=== PATIENT | female | born 1975 | race Caucasian/White ===

== ENCOUNTER 2024-05-16 17:29 | Emergency (ER) | payer SELFPAY ==
[2024-05-16] VITALS (9 sets, daily range): BP systolic 94–123; BP diastolic 63–94; PULSE 66–89; RESP 12–21; TEMP 36.5; O2SAT 94–100; BMI 26.9
--- NOTE | 2024-05-16 17:35 | ECG_ITS ---
[facility]24[facility]16 Pat Name: Micheline William Department: Room: Gender: Female [employer] Specialists: : 1975 Requested By: Zeke Andrade Order Number: [id number] Reading MD: ANKIT ADLER Measurements Intervals [place] Rate: 77 P: 48 CA: 145 QRS: 101 QRSD: 84 T: 51 QT: 387 QTc: 440 Interpretive Statements SINUS RHYTHM WITH SINUS ARRHYTHMIA RIGHT AXIS DEVIATION [QRS AXIS > 100] NONSPECIFIC T-WAVE ABNORMALITY No previous ECG available for comparison Electronically Signed On 05-17-2024 19:14:01 TECHNICAL FELLOW by ANKIT ADLER [email or web address]
--- NOTE | 2024-05-16 17:46 | CTR_ITS ---
PROCEDURE INFORMATION: Exam: CT Head Without Contrast Exam date and time: 05/16/2024 6:07 PM Age: 48 years old Clinical indication: C/O dizziness with nausea TECHNIQUE: Imaging protocol: Computed tomography of the head without contrast. Radiation optimization: All CT scans at this facility use at least one of these dose optimization techniques: automated exposure control; mA and/or kV adjustment per patient size (includes targeted exams where dose is matched to clinical indication); or iterative reconstruction. COMPARISON: No relevant prior studies available. RADIATION DOSE METRICS: Total DLP (mGy-cm): 1004.33 FINDINGS: Brain: No hemorrhage. No mass effect or midline shift. No significant white matter disease. Cerebral ventricles: No ventriculomegaly. Paranasal sinuses: Visualized sinuses are unremarkable. No fluid levels. Mastoid air cells: Visualized mastoid air cells are well aerated. Bones: Unremarkable. No acute fracture. Soft tissues: Unremarkable. CT/CT head wo con* [id number] IMPRESSION: No acute intracranial findings.
--- NOTE | 2024-05-16 17:52 | W.ED.ARRPALP ---
Documented by User: Zeke Ruffin DO 05/17/24 06:26 HPI - Arrhythmia/Palpitations General: Chief Complaint: Arrhythmia/Palpitations Stated Complaint: SOB,dizzy Time Seen by Provider: 05/16/24 17:45 History of Present Illness: 48-year-old female presents emergency room clinic shortness of breath dizziness she is getting some cramping in her hands. Seems does have trouble most of the day but she says in the last hour she has had more numbness and tingling bilaterally in her hands and feet that her hands are cramping she feels like she is a hard time opening up. She has not eaten nauseated generally rather anxious. Related Data Previous Rx's ?Medication ?Instructions ?Recorded prednisone 5 mg tablets in a dose See Rx Instructions PO .COMPLEX 05/16/24 pack #21 ea Allergies Allergy/AdvReac Type Severity Reaction Status Date / Time No Known Allergies Allergy Verified 05/16/24 17:40 Review of Systems Const: Denies: fever(s) or chills Card: Denies: chest pain Resp: Reports: dyspnea GI: Denies: abdominal pain : Denies: dysuria, urinary frequency or urinary urgency Musc: Reports: extremity pain (Carpopedal spasm cramping); Denies: neck pain or back pain Skin/Breast: Denies: rash Physical Exam Const: GENERAL APPEARANCE: cooperative ORIENTATION/CONSCIOUSNESS: Yes awake, Yes oriented to person, Yes oriented to place and Yes oriented to time HENMT: COMMON NORMALS: normocephalic, atraumatic and hearing grossly normal bilaterally HEAD & SCALP: normocephalic and atraumatic Resp: COMMON NORMALS: No retractions and clear to auscultation bilaterally EFFORT & INSPECTION: Yes tachypneic AUSCULTATION: clear to auscultation bilaterally Cardio: COMMON NORMALS: regular rate, regular rhythm and No murmurs present (Cardio) RATE: regular rate RHYTHM: regular rhythm GI: COMMON NORMALS: Soft to palpation and No hepatosplenomegaly present AUSCULTATION: Yes normoactive bowel sounds PALPATION: Yes Soft to palpation, No Tenderness to palpation present (GI), No Guarding due to palpation present (GI) and Yes No hepatosplenomegaly present Extremity: COMMON NORMALS: normal to inspection, capillary refill normal, no clubbing, cyanosis or edema, no calf tenderness and no pedal edema Neuro: SENSORIUM/ORIENTATION: Yes oriented to person, Yes oriented to place and Yes oriented to time Skin: COMMON NORMALS: no rashes or lesions noted GENERAL SKIN EXAM: no rashes or lesions noted Course Vital Signs: Vital signs: Vital Signs Temperature 97.7 F 05/16/24 17:30 Pulse Rate 72 05/16/24 20:45 Respiratory Rate 18 05/16/24 20:45 Blood Pressure 109/76 05/16/24 20:45 Pulse Oximetry 96 05/16/24 20:45 Oxygen Delivery Me thod Room Air 05/16/24 19:05 MDM - Arrhythmia/Palpitations Medical Decision Making Care signed out to Dr. Kumar at change of shift. See final notes for diagnosis and disposition. EKG revealed sinus rhythm with no ST segment abnormalities. Head CT was normal. Arterial blood gases revealed a pH of 7.61 with a pCO2 of 17 and a pO2 of 120 on room air. CBC and CMP were normal. Troponin less than 6. Urinalysis normal. Patient declined a 2-hour troponin. She is feeling back to normal now. Appears that she had a panic attack possibly secondary to her asthma. I did place her on a prednisone burst and taper. Recommended she follow-up with her primary care physician next week for recheck. She was discharged in stable condition. Lab Data 05/16/24 18:30 05/16/24 18:[address] 05/16/24 17:46 IMPRESSION: No acute intracranial findings. Laboratory Results WBC 7.89 10^3/uL (3.29-11.43) 05/16/24 18:30 RBC 4.19 10^6/uL (3.85-5.65) 05/16/24 18:30 Hgb 12.90 g/dL (11.27-16.99) 05/16/24 18:30 Hct 38.7 % (36-47) 05/16/24 18:30 MCV 92.4 fl (85-98) 05/16/24 18:30 MCH 30.8 pg (27-33) 05/16/24 18:30 MCHC 33.3 g/dL (30-55) 05/16/24 18:30 RDW 12.1 % (12.1-15.1) 05/16/24 18:30 Plt Count 326 10^3/cmm (157-399) 05/16/24 18:30 MPV 9.9 fL (7.4-10.4) 05/16/24 18:30 Neut % (Auto) 59.5 % 05/16/24 18:30 Lymph % (Auto) 31.6 % 05/16/24 18:30 [place] % (Auto) 7.6 % 05/16/24 18:30 Eos % (Auto) 0.4 % 05/16/24 18:30 Baso % (Auto) 0.6 % 05/16/24 18:30 Neut # (Auto) 4.70 10^3/uL (1.8-7.7) 05/16/24 18:30 Lymph # (Auto) 2.5 10^3/uL (0.8-4.8) 05/16/24 18:30 [place] # (Auto) 0.6 10^3/uL (0.2-0.9) 05/16/24 18:30 Eos # (Auto) 0.0 10^3/uL (0.0-0.8) 05/16/24 18:30 Baso # (Auto) 0.1 10^3/uL (0.0-0.1) 05/16/24 18: Nucleated RBC % (auto) 0 % 05/16/24 18: Nucleated RBCs # 0.0 /100WBC 05/16/24 18:30 Specimen Type Arterial 05/16/24 17:51 Sample Site Radial, right 05/16/24 17:51 ABG pH 7.61 (7.35-7.45) H* 05/16/24 17:51 ABG pCO2 17.2 mmHg (35-45) L* 05/16/24 17:51 ABG pO2 120.0 mmHg (80.0-100.0) H 05/16/24 17:51 ABG PO2/FiO2 Ratio 571 05/16/24 17:51 ABG HCO3 17.3 mmol/L (22-26) L 05/16/24 17:51 ABG O2 Saturation > 99.1 05/16/24 17:51 ABG Base Excess -1.4 mmol/L (-2.0-2.0) 05/16/24 17:51 Guicho Test Pos 05/16/24 17:51 A-a O2 Gradient 0.8 mmHg (5-10) L 05/16/24 17:51 Hematocrit 41.9 % (37-47) 05/16/24 17:51 Hgb O2 Saturation 98.1 % (95-100) 05/16/24 17:51 Carboxyhemoglobin 0.8 %THgb (0.4-20.1) 05/16/24 17:51 Methemoglobin 0.9 % (0.4-1.5) 05/16/24 17:51 Total Hemoglobin 13.7 g/dL (12-16) 05/16/24 17:51 Sodium 142.0 mmol/L (131-143) 05/16/24 17:51 Potassium 3.5 mmol/L (3.5-5.0) 05/16/24 17:51 Glucose 107.0 mg/dL (70-115) 05/16/24 17:51 Ionized Calcium 1.2 mmol/L (1.1-1.4) 05/16/24 17:51 O2 Delivery Device Room air 05/16/24 17:51 FiO2 21.0 % 05/16/24 17:51 Help Desk Specialist ID Walci 05/16/24 17:51 Sodium 139 mmol/L (136-145) 05/16/24 18:30 Potassium 3.6 mmol/L (3.5-5.1) 05/16/24 18:30 Chloride 104 mmol/L (98-107) 05/16/24 18:30 Carbon Dioxide 17 mmol/L (22-29) L 05/16/24 18:30 Anion Gap 21.6 (5-19) H 05/16/24 18:30 BUN 10 mg/dL (6-20) 05/16/24 18:30 Creatinine 0.8 mg/dL (0.5-0.9) 05/16/24 18:30 GFR Calculation 76.9 mL/min (90-130) L 05/16/24 18:30 Glucose 100 mg/dL (65-115) 05/16/24 18:30 Calculated Osmolality 287 mOsm/kg (285-295) 05/16/24 18:30 Calcium 9.6 mg/dL (8.5-10.5) 05/16/24 18:30 Total Bilirubin 0.2 mg/dL (0.15-1.2) 05/16/24 18:30 AST 15 U/L (0-32) 05/16/24 18:30 ALT 10 U/L (0-33) 05/16/24 18:30 Alkaline Phosphatase 73 U/L (35-105) 05/16/24 18:30 Troponin T Baseline < 6 ng/L (0-10) 05/16/24 18:30 Total Protein 7.4 g/dL (6.6-8.7) 05/16/24 18:30 Albumin 4.5 g/dL (3.5-5.2) 05/16/24 18:30 Globulin 2.9 g/dL (1.3-4.6) 05/16/24 18:30 Urine Color Yellow (Yellow) 05/16/24 18:51 Urine Appearance Clear (CLEAR) 05/16/24 18:51 Urine pH 6.5 (5-7) 05/16/24 18:51 Ur Specific [place] 1.005 (1.005-1.030) 05/16/24 18:51 Urine Protein Negative (Negative) 05/16/24 18:51 Urine Glucose (UA) Negative (Normal) 05/16/24 18:51 Urine Ketones Negative (Negative) 05/16/24 18:51 Urine Blood 2+ (Negative) A 05/16/24 18:51 Urine Nitrate Negative (Negative) 05/16/24 18:51 Urine Bilirubin Negative (Negative) 05/16/24 18:51 Urine Urobilinogen 0.2 mg/dL (Negative) 05/16/24 18:51 Ur Leukocyte Esterase Negative (Negative) 05/16/24 18:51 Urine RBC 0-2 /hpf (0-2) 05/16/24 18:51 Urine WBC 0-5 /hpf (0-5) 05/16/24 18:51 Ur Squamous Epith Cells 0-5 /hpf (0-5) 05/16/24 18:51 Amorphous Sediment Not Reportable 05/16/24 18:51 Urine Bacteria None seen /hpf (NONE) 05/16/24 18:51 Hyaline Casts 0-4 /lpf H 05/16/24 18:51 Discharge Plan Discharge Patient Disposition: Home Clinical Impression: Anxiety, Palpitations Asthma Qualifiers: Asthma severity: mild Asthma persistence: intermittent Asthma complication type: with acute exacerbation Qualified Code(s): J45.21 - Mild intermittent asthma with (acute) exacerbation Condition: Stable Prescriptions: New prednisone 5 mg tablets,dose pack See Rx Instructions PO .COMPLEX Qty: 21 0RF Rx Instructions: prednisone 5 mg: take 8 tablets (40 mg) on Day 1; 7 tablets (35 mg) on Day 2; then decrease by 1 tablet every day until finished Discharge Orders: Discharge ED (Routine); Ordered 05/16/24 Ordered By: Tr Kumar Patient Instructions: Heart Palpitations Activity Restrictions/Additional Instructions: Follow-up with your primary care provider next week for recheck. Print Language: Guamanian Coding Level of Care Code ED Medical Office Administrator for Chg Fwd Documented by User: Tr Kumar MD 05/16/24 20:43 HPI - Arrhythmia/Palpitations General: Chief Complaint: Arrhythmia/Palpitations Stated Complaint: SOB,dizzy Time Seen by Provider: 05/16/24 17:45 Related Data Previous Rx's ?Medication ?Instructions ?Recorded prednisone 5 mg tablets in a dose See Rx Instructions PO .COMPLEX 05/16/24 pack #21 ea Allergies Allergy/AdvReac Type Severity Reaction Status Date / Time No Known Allergies Allergy Verified 05/16/24 17:40 Review of Systems General: Reports: 10 or more systems reviewed and unremarkable except in HPI and below Card: Reports: chest pain and palpitations Resp: Reports: dyspnea Physical Exam Const: COMMON NORMALS: no acute distress, patient oriented x3 and no limitations GENERAL APPEARANCE: cooperative and comfortable HENMT: COMMON NORMALS: normocephalic, atraumatic, Normal nasal mucous membranes and turbinates present, moist oral mucous membranes and oropharynx normal HEAD & SCALP: normal to inspection, normocephalic and atraumatic FACE & SINUS: normal facial exam NOSE: Normal nasal mucous membranes and turbinates present Eye: COMMON NORMALS: Equal, round and reactive pupils present, EOMs intact bilaterally and conjunctivae normal GENERAL EYE: appearance normal, both eyes and all related structures CONJUNCTIVA: Yes conjunctivae normal PUPIL: Yes Equal, round and reactive pupils present Neck/C-Spine: COMMON NORMALS: supple and no JVD Chest: COMMONS NORMALS: normal inspection of the chest Resp: COMMON NORMALS: normal respiratory effort and clear to auscultation bilaterally AUSCULTATION: clear to auscultation bilaterally Cardio: COMMON NORMALS: no JVD, regular rate, regular rhythm, No gallops present (Cardio), No murmurs present (Cardio) and No rub (Cardio) RATE: regular rate RHYTHM: regular rhythm GI: COMMON NORMALS: Normal to inspection, nondistended, normoactive bowel sounds present, Soft to palpation and non-tender AUSCULTATION: Yes normoactive bowel sounds PALPATION: Yes Soft to palpation : COMMON NORMALS: Yes no CVA tenderness BLADDER/KIDNEY EXAM: Yes no CVA tenderness Back/Pelvis: COMMON NORMALS: no CVA tenderness and thoracic and lumbar spine normal to inspection Extremity: COMMON NORMALS: normal to inspection Neuro: COMMON NORMALS: patient oriented x3 and CN's II-XII intact bilaterally Psych: COMMON NORMALS: mental status grossly normal, Normal thought process present and cooperative THOUGHT PROCESS: Normal thought process present Skin: COMMON NORMALS: no rashes or lesions noted, turgor normal and no jaundice GENERAL SKIN EXAM: no rashes or lesions noted and turgor normal Course Vital Signs: Vital signs: Vital Signs Temperature 97.7 F 05/16/24 17:30 Pulse Rate 72 05/16/24 20:45 Respiratory Rate 18 05/16/24 20:45 Blood Pressure 109/76 05/16/24 20:45 Pulse Oximetry 96 05/16/24 20:45 Oxygen Delivery Me thod Room Air 05/16/24 19:05 MDM - Arrhythmia/Palpitations Medical Decision Making EKG revealed sinus rhythm with no ST segment abnormalities. Head CT was normal. Arterial blood gases revealed a pH of 7.61 with a pCO2 of 17 and a pO2 of 120 on room air. CBC and CMP were normal. Troponin less than 6. Urinalysis normal. Patient declined a 2-hour troponin. She is feeling back to normal now. Appears that she had a panic attack possibly secondary to her asthma. I did place her on a prednisone burst and taper. Recommended she follow-up with her primary care physician next week for recheck. She was discharged in stable condition. Lab Data 05/16/24 18:30 05/16/24 18:[address] 05/16/24 17:46 IMPRESSION: No acute intracranial findings. Laboratory Results WBC 7.89 10^3/uL (3.29-11.43) 05/16/24 18:30 RBC 4.19 10^6/uL (3.85-5.65) 05/16/24 18:30 Hgb 12.90 g/dL (11.27-16.99) 05/16/24 18:30 Hct 38.7 % (36-47) 05/16/24 18:30 MCV 92.4 fl (85-98) 05/16/24 18: MCH 30.8 pg (27-33) 05/16/24 18: MCHC 33.3 g/dL (30-55) 05/16/24 18:30 RDW 12.1 % (12.1-15.1) 05/16/24 18:30 Plt Count 326 10^3/cmm (157-399) 05/16/24 18:30 MPV 9.9 fL (7.4-10.4) 05/16/24 18:30 Neut % (Auto) 59.5 % 05/16/24 18:30 Lymph % (Auto) 31.6 % 05/16/24 18:30 [place] % (Auto) 7.6 % 05/16/24 18:30 Eos % (Auto) 0.4 % 05/16/24 18:30 Baso % (Auto) 0.6 % 05/16/24 18:30 Neut # (Auto) 4.70 10^3/uL (1.8-7.7) 05/16/24 18:30 Lymph # (Auto) 2.5 10^3/uL (0.8-4.8) 05/16/24 18:30 [place] # (Auto) 0.6 10^3/uL (0.2-0.9) 05/16/24 18:30 Eos # (Auto) 0.0 10^3/uL (0.0-0.8) 05/16/24 18:30 Baso # (Auto) 0.1 10^3/uL (0.0-0.1) 05/16/24 18:30 Nucleated RBC % (auto) 0 % 05/16/24 18:30 Nucleated RBCs # 0.0 /100WBC 05/16/24 18:30 Specimen Type Arterial 05/16/24 17:51 Sample Site Radial, right 05/16/24 17:51 ABG pH 7.61 (7.35-7.45) H* 05/16/24 17:51 ABG pCO2 17.2 mmHg (35-45) L* 05/16/24 17:51 ABG pO2 120.0 mmHg (80.0-100.0) H 05/16/24 17:51 ABG PO2/FiO2 Ratio 571 05/16/24 17:51 ABG HCO3 17.3 mmol/L (22-26) L 05/16/24 17:51 ABG O2 Saturation > 99.1 05/16/24 17:51 ABG Base Excess -1.4 mmol/L (-2.0-2.0) 05/16/24 17:51 Guicho Test Pos 05/16/24 17:51 A-a O2 Gradient 0.8 mmHg (5-10) L 05/16/24 17:51 Hematocrit 41.9 % (37-47) 05/16/24 17:51 Hgb O2 Saturation 98.1 % (95-100) 05/16/24 17:51 Carboxyhemoglobin 0.8 %THgb (0.4-20.1) 05/16/24 17:51 Methemoglobin 0.9 % (0.4-1.5) 05/16/24 17:51 Total Hemoglobin 13.7 g/dL (12-16) 05/16/24 17:51 Sodium 142.0 mmol/L (131-143) 05/16/24 17:51 Potassium 3.5 mmol/L (3.5-5.0) 05/16/24 17:51 Glucose 107.0 mg/dL (70-115) 05/16/24 17:51 Ionized Calcium 1.2 mmol/L (1.1-1.4) 05/16/24 17:51 O2 Delivery Device Room air 05/16/24 17:51 FiO2 21.0 % 05/16/24 17:51 Help Desk Specialist ID Walci 05/16/24 17:51 Sodium 139 mmol/L (136-145) 05/16/24 18:30 Potassium 3.6 mmol/L (3.5-5.1) 05/16/24 18:30 Chloride 104 mmol/L (98-107) 05/16/24 18:30 Carbon Dioxide 17 mmol/L (22-29) L 05/16/24 18:30 Anion Gap 21.6 (5-19) H 05/16/24 18:30 BUN 10 mg/dL (6-20) 05/16/24 18: Creatinine 0.8 mg/dL (0.5-0.9) 05/16/24 18:30 GFR Calculation 76.9 mL/min (90-130) L 05/16/24 18: Glucose 100 mg/dL (65-115) 05/16/24 18: Calculated Osmolality 287 mOsm/kg (285-295) 05/16/24 18: Calcium 9.6 mg/dL (8.5-10.5) 05/16/24 18: Total Bilirubin 0.2 mg/dL (0.15-1.2) 05/16/24 18: AST 15 U/L (0-32) 05/16/24 18: ALT 10 U/L (0-33) 05/16/24 18: Alkaline Phosphatase 73 U/L (35-105) 05/16/24 18: Troponin T Baseline < 6 ng/L (0-10) 05/16/24 18:30 Total Protein 7.4 g/dL (6.6-8.7) 05/16/24 18: Albumin 4.5 g/dL (3.5-5.2) 05/16/24 18: Globulin 2.9 g/dL (1.3-4.6) 05/16/24 18:30 Urine Color Yellow (Yellow) 05/16/24 18:51 Urine Appearance Clear (CLEAR) 05/16/24 18: Urine pH 6.5 (5-7) 05/16/24: Ur Specific [place] 1.005 (1.005-1.030) 05/16/24 18:51 Urine Protein Negative (Negative) 05/16/24 18:51 Urine Glucose (UA) Negative (Normal) 05/16/24 18: Urine Ketones Negative (Negative) 05/16/24 18:51 Urine Blood 2+ (Negative) A 05/16/24 18:51 Urine Nitrate Negative (Negative) 05/16/24 18:51 Urine Bilirubin Negative (Negative) 05/16/24 18:51 Urine Urobilinogen 0.2 mg/dL (Negative) 05/16/24 18:51 Ur Leukocyte Esterase Negative (Negative) 05/16/24 18:51 Urine RBC 0-2 /hpf (0-2) 05/16/24 18:51 Urine WBC 0-5 /hpf (0-5) 05/16/24 18:51 Ur Squamous Epith Cells 0-5 /hpf (0-5) 05/16/24 18:51 Amorphous Sediment Not Reportable 05/16/24 18:51 Urine Bacteria None seen /hpf (NONE) 05/16/24 18:51 Hyaline Casts 0-4 /lpf H 05/16/24 18:51 All radiology interpretation(s) finalized by discharge Discharge Plan Discharge Patient Disposition: Home Clinical Impression: Anxiety, Palpitations Asthma Qualifiers: Asthma severity: mild Asthma persistence: intermittent Asthma complication type: with acute exacerbation Qualified Code(s): J45.21 - Mild intermittent asthma with (acute) exacerbation Condition: Stable Prescriptions: New prednisone 5 mg tablets,dose pack See Rx Instructions PO .COMPLEX Qty: 21 0RF Rx Instructions: prednisone 5 mg: take 8 tablets (40 mg) on Day 1; 7 tablets (35 mg) on Day 2; then decrease by 1 tablet every day until finished Discharge Orders: Discharge ED (Routine); Ordered 05/16/24 Ordered By: Tr Kumar Patient Instructions: Heart Palpitations Activity Restrictions/Additional Instructions: Follow-up with your primary care provider next week for recheck. Print Language: Guamanian Coding Level of Care Code ED Medical Office Administrator for Fredi Escamilla
[2024-05-16 18:02] LABS: ABG PCO2 17.2 mmHg (35-45); ABG PH Result 7.61 (7.35-7.45); Alveolar-Arterial Oxygen Gradi 0.8 mmHg (5-10); Arterial Blood Gas Hematocrit 41.9 % (37-47); Base Excess ABG -1.4 mmol/L (-2.0-2.0); Blood Gas Allen Test Pos; Blood Gas Operator Identificat WALCI; Blood Gas Sample Site Radial, right; Blood Gas Sample Type Arterial; Carboxyhemoglobin 0.8 %THgb (0.4-20.1); HCO3 ABG 17.3 mmol/L (22-26); HGB O2 Sat 98.1 % (95-100); Ionized Calcium Level - ABG 1.2 mmol/L (1.1-1.4); Methemoglobin 0.9 % (0.4-1.5); Oxygen Device ROOM AIR; Oxygen Saturation ABG > 99.1; PO2 FiO2 Ratio Arterial Blood 571; Potassium Level - ABG 3.5 mmol/L (3.5-5.0); Total Hemoglobin 13.7 g/dL (12-16)
--- NOTE | 2024-05-16 18:15 | ECG_ITS ---
[facility] Test Date: 2024-05-16 Pat Name: Micheline William Department: Room: Gender: Female Mask Designer: : 1975 Requested By: Zeke Andrade Order Number: [id number] Reading MD: ANKIT ADLER Measurements Intervals [place] Rate: 75 P: 50 OK: 135 QRS: 94 QRSD: 79 T: 65 QT: 415 QTc: 466 Interpretive Statements SINUS RHYTHM BORDERLINE RIGHT AXIS DEVIATION [QRS AXIS > 90] Compared to ECG 05/16/2024 17:35:02 Sinus arrhythmia no longer present T-wave abnormality no longer present Electronically Signed On 05-17-2024 19:16:39 SCRAP IRON LOADER by ANKIT ADLER [email or web address]
[2024-05-16 18:43] LABS: Basophils # 0.1 10^3/uL (0.0-0.1); Basophils % 0.6 %; Eosinophils % 0.4 %; Hematocrit 38.7 % (36-47); Lymphocytes # 2.5 10^3/uL (0.8-4.8); Lymphocytes % 31.6 %; Mean Corpuscular HGB Conc 33.3 g/dL (30-55); Mean Corpuscular Hemoglobin 30.8 pg (27-33); Mean Corpuscular Volume 92.4 fl (85-98); Mean Platelet Volume 9.9 fL (7.4-10.4); Monocytes # 0.6 10^3/uL (0.2-0.9); Monocytes % 7.6 %; Neutrophils % 59.5 %; Nucleated Red Blood Cells % 0 %; Platelet Count 326 10^3/cmm (157-399); Red Blood Count 4.19 10^6/uL (3.85-5.65); Red Cell Distribution Width 12.1 % (12.1-15.1); White Blood Count 7.89 10^3/uL (3.29-11.43)
[2024-05-16 18:57] LABS: Bilirubin Urine Negative (Negative); Blood Urine 2+ (Negative); Glucose Urine UA Negative (Normal); Ketones Urine Negative (Negative); Leukocyte Esterase Urine Negative (Negative); Nitrate Urine Negative (Negative); Protein Urine Negative (Negative); Specific Gravity, Urine 1.005 (1.005-1.030); Urine Appearance Clear (CLEAR); Urine Color Yellow (Yellow); Urobilinogen Urine 0.2 mg/dL (Negative); pH Urine 6.5 (5-7)
[2024-05-16 19:02] LABS: Alanine Aminotransferase 10 U/L (0-33); Albumin Level 4.5 g/dL (3.5-5.2); Alkaline Phosphatase 73 U/L (35-105); Anion Gap 21.6 (5-19); Aspartate Amino Transferase 15 U/L (0-32); Blood Urea Nitrogen 10 mg/dL (6-20); Calcium 9.6 mg/dL (8.5-10.5); Carbon Dioxide 17 mmol/L (22-29); Chloride 104 mmol/L (98-107); Creatinine Clr Calc Pharmacy 80.9966; Globulin 2.9 g/dL (1.3-4.6); Glomerular Filtration Rate 76.9 mL/min (90-130); Glucose 100 mg/dL (65-115); Osmolality Calculated 287 mOsm/kg (285-295); Potassium 3.6 mmol/L (3.5-5.1); Sodium 139 mmol/L (136-145); Total Bilirubin 0.2 mg/dL (0.15-1.2); Total Protein 7.4 g/dL (6.6-8.7)
[2024-05-16 19:02] LABS: Add Urine Microscopic? YES; Bacteria Urine None Seen /hpf; Hyaline Casts Urine 0-4 /lpf; RBC Urine 0-2 /hpf (0-2); Squamous Epithelial Cell Urine 0-5 /hpf (0-5); WBC Urine 0-5 /hpf (0-5)
[2024-05-16 19:03] LABS: Troponin(5th) Baseline < 6 ng/L (0-10)
== END 2024-05-16 20:50 | disposition home or self-care (01) ==
PROVIDERS: Family Medicine; Emergency Provider Emergency Medicine
DX: F41.9 Anxiety disorder, unspecified (principal); R00.2 Palpitations; J45.21 Mild intermittent asthma with (acute) exacerbation
CPT/HCPCS: 36415; 36600; 70450; 80051; 80053; 81001; 82330; 82805; 84484; 85025; 93005; 96374; 99285

== ENCOUNTER → 2024-10-27 16:03 | Outpatient (BNVA) | payer OTHER, SELFPAY | PROVIDERS: Visit Provider Obstetrics & Gynecology | DX: Z12.4 Encounter for screening for malignant neoplasm of cervix (principal); R30.0 Dysuria | CPT/HCPCS: 81000; 87086; 87624 ==